=== PATIENT | female | born 1985 | race Caucasian/White ===

== ENCOUNTER 2020-10-02 09:08 | Emergency (ER) | payer OTHER ==
[~2020-10-02 09:08] MED LIST: DOXYCYCLINE HY100 MG PO; ZITHROMAX250 MG PO; ZOFRAN4 MG PO
[2020-10-02 11:06] LABS: HEMOGLOBIN 10.5 gm/dl (12.3-15.3); RED BLOOD COUNT 4.56 M/UL (4.00-5.10); WHITE BLOOD COUNT 12.2 K/UL (4.5-11.0)
[2020-10-02 11:32] LABS: BUN/CREATININE RATIO 16 (0-10)
[2020-10-02] MEDS ORDERED: ZOFRAN ODT 4 MG4 MG PO (13:06)
[2020-10-02] MEDS ORDERED: DOXYCYCLINE MO100 MG PO (13:06)
[2020-10-02] MEDS ORDERED: VENTOLIN HFA 66.7 GM INH (13:06)
[2020-10-02] MEDS ORDERED: TESSALON PERLE100 MG PO (13:06)
== END 2020-10-02 13:30 | disposition home or self-care (01) ==
LOC: ER1 09:08
PROVIDERS: Nurse Practitioner
DX: J18.9 Pneumonia, unspecified organism (principal); R11.10 Vomiting, unspecified; Z20.822 Contact with and (suspected) exposure to COVID-19; I10 Essential (primary) hypertension; F17.290 Nicotine dependence, other tobacco product, uncomplicated; E03.9 Hypothyroidism, unspecified; Z90.89 Acquired absence of other organs
CPT/HCPCS: 0240U; 71045; 80053; 82550; 82553; 83605; 83690; 84484; 84703; 85025; 87040; 93005; 96374; 96375; 99284; J1885; J2405

== ENCOUNTER → 2021-02-06 | Outpatient (CLI) | payer OTHER ==
[~2021-02-06] MED LIST changes: +DOXYCYCLINE MO100 MG PO; +TESSALON PERLE100 MG PO; +VENTOLIN HFA 66.7 GM INH; +ZOFRAN ODT 4 MG4 MG PO
== END ==
LOC: KOH-I 09:23
DX: M79.604 Pain in right leg (principal); M79.605 Pain in left leg
CPT/HCPCS: 93970

== ENCOUNTER → 2021-02-13 | Emergency (ER) | payer OTHER ==
[~2021-02-13] MED LIST changes: +VIBRAMYCIN100 MG PO
== END | disposition home or self-care (01) ==
LOC: ER1 10:42
DX: J18.9 Pneumonia, unspecified organism (principal); J06.9 Acute upper respiratory infection, unspecified; Z20.822 Contact with and (suspected) exposure to COVID-19; Z90.49 Acquired absence of other specified parts of digestive tract; E07.9 Disorder of thyroid, unspecified
CPT/HCPCS: 71046; 99284; U0002

== ENCOUNTER 2021-02-17 18:15 | Emergency (ER) | payer OTHER ==
[2021-02-17 20:14] LABS: HEMOGLOBIN 9.9 gm/dl (12.3-15.3); RED BLOOD COUNT 4.61 M/UL (4.00-5.10); WHITE BLOOD COUNT 10.6 K/UL (4.5-11.0)
[2021-02-17 20:35] LABS: BUN/CREATININE RATIO 28 (0-10)
== END 2021-02-18 10:06 | disposition home or self-care (01) ==
LOC: ER1 18:15
PROVIDERS: Physician Assistant
DX: K95.09 Other complications of gastric band procedure (principal); K31.1 Adult hypertrophic pyloric stenosis; R07.89 Other chest pain; Z20.822 Contact with and (suspected) exposure to COVID-19; E66.01 Morbid (severe) obesity due to excess calories; Z90.49 Acquired absence of other specified parts of digestive tract
CPT/HCPCS: 71045; 80053; 82550; 82553; 83605; 83690; 83735; 83874; 83880; 84484; 84703; 85025; 85379; 85610; 85730; 93005; 96374; 96375; 96376; 99285; J1885; J2270; J2405; Q9967; U0002

== ENCOUNTER 2021-03-15 13:48 | Emergency (ER) | payer OTHER ==
[2021-03-15 14:34] LABS: HEMOGLOBIN 9.1 gm/dl (12.3-15.3); RED BLOOD COUNT 4.46 M/UL (4.00-5.10); WHITE BLOOD COUNT 6.6 K/UL (4.5-11.0)
[2021-03-15 15:08] LABS: BUN/CREATININE RATIO 28 (0-10)
== END 2021-03-15 16:30 | disposition home or self-care (01) ==
LOC: ER1 13:48
PROVIDERS: Emergency Medicine
DX: U07.1 COVID-19 (principal)
CPT/HCPCS: 80053; 82550; 82553; 83874; 84484; 85025; 93005; 99284

== ENCOUNTER → 2021-09-03 | Outpatient (CLI) | payer OTHER | LOC: KOH-I 11:12 | DX: R06.02 Shortness of breath (principal) | CPT/HCPCS: 71046 ==

== ENCOUNTER → 2021-10-29 | Outpatient (CLI) | payer OTHER | LOC: ECHO 09:04 → NM 10-30 09:00 | DX: R07.9 Chest pain, unspecified (principal); R55 Syncope and collapse; R00.2 Palpitations; R06.02 Shortness of breath | CPT/HCPCS: ECHO; 78452; 93017; 93306; A9502; J2785 ==